=== PATIENT | female | born 1940 | race Caucasian/White ===

== ENCOUNTER 2017-01-01 18:01 | Outpatient (CLI) | payer MEDICARE, OTHER | END 2017-01-01 18:02 | disposition home or self-care (01) | DX: R50.9 Fever, unspecified (principal); R53.83 Other fatigue; R06.89 Other abnormalities of breathing ==

== ENCOUNTER 2017-01-02 15:08 | Inpatient (IN) | payer MEDICARE, OTHER ==
[2017-01-02] MEDS ORDERED: DEXAMETHASONE 10 MG/ML VIAL PO STA (16:00)
[2017-01-02] MEDS ORDERED: ALBUTEROL NEB 2.5 MG/3 ML INH STA ×2 (16:00→18:53)
[2017-01-02] MEDS ORDERED: CHERRY SYRUP 10 ML UDC PO ONE (16:04)
[2017-01-02] MEDS ORDERED: DEXAMETHASONE 10 MG/ML VIAL ONE (16:04)
[2017-01-02] MEDS ORDERED: ALBUTEROL NEB 2.5 MG/3 ML INH ONE ×2 (16:08→19:06)
[2017-01-02] MEDS ORDERED: IOPAMIDOL-300 100 ML VIAL IVP ONE (18:05)
[2017-01-02] MEDS ORDERED: SODIUM CHLORIDE FLUSH 0.9% 10 ML SYRINGE IVP PRN (20:22)
[2017-01-02] MEDS ORDERED: ONDANSETRON 4 MG/2 ML VIAL IVP PRN (20:22)
[2017-01-02] MEDS ORDERED: ACETAMINOPHEN 325 MG TABLET PO PRN (20:22)
[2017-01-02] MEDS ORDERED: IPRATROPIUM/ALBUTEROL 3 ML NEB INH PRN (20:26)
[2017-01-02] MEDS: methylPREDNISolone SUCCINATE 40 MG/ML VIAL IVP SCH (22:39)
[2017-01-02] MEDS: HEPARIN 5,000 UNIT/ML VIAL SUBQ SCH (22:39)
[2017-01-02] MEDS: SODIUM CHLORIDE FLUSH 0.9% 10 ML SYRINGE IVP SCH (22:40)
[2017-01-02] MEDS: cefTRIAXone 1 GM in SODIUM CHLORIDE 0.9% MINIBAG 100 ML IV SCH (22:40)
[2017-01-03] MEDS: BENZOCAINE/MENTHOL LOZENGE MM PRN ×2 (02:52→23:51)
[2017-01-03] MEDS: methylPREDNISolone SUCCINATE 40 MG/ML VIAL IVP SCH ×4 (02:53→20:45)
[2017-01-03] MEDS: SODIUM CHLORIDE FLUSH 0.9% 10 ML SYRINGE IVP SCH ×3 (07:00→20:47)
[2017-01-03] MEDS: cefTRIAXone 1 GM in SODIUM CHLORIDE 0.9% MINIBAG 100 ML IV SCH (08:25)
[2017-01-03] MEDS: HEPARIN 5,000 UNIT/ML VIAL SUBQ SCH ×2 (08:26→20:45)
[2017-01-03] MEDS: POLYETHYLENE GLYCOL 3350 17 GM PACKET PO SCH (08:28)
[2017-01-03] MEDS: AZITHROMYCIN INJ 500 MG in SODIUM CHLORIDE 0.9% 250 ML IV SCH (16:44)
[2017-01-03] MEDS: guaiFENesin/DEXTROMETHORPHAN 10 ML UDC PO PRN (18:48)
[2017-01-04] MEDS: guaiFENesin/DEXTROMETHORPHAN 10 ML UDC PO PRN (00:53)
[2017-01-04] MEDS: SODIUM CHLORIDE FLUSH 0.9% 10 ML SYRINGE IVP SCH (02:42)
[2017-01-04] MEDS: methylPREDNISolone SUCCINATE 40 MG/ML VIAL IVP SCH ×2 (02:42→07:59)
[2017-01-04] MEDS: HEPARIN 5,000 UNIT/ML VIAL SUBQ SCH (07:59)
[2017-01-04] MEDS: POLYETHYLENE GLYCOL 3350 17 GM PACKET PO SCH (07:59)
[2017-01-04] MEDS: cefTRIAXone 1 GM in SODIUM CHLORIDE 0.9% MINIBAG 100 ML IV SCH (07:59)
[2017-01-04] MEDS: AZITHROMYCIN INJ 500 MG in SODIUM CHLORIDE 0.9% 250 ML IV SCH (12:11)
== END 2017-01-04 13:10 | disposition home or self-care (01) | DRG 192 ==
DX: J44.1 Chronic obstructive pulmonary disease with (acute) exacerbation (principal); R06.00 Dyspnea, unspecified; R09.02 Hypoxemia; F17.200 Nicotine dependence, unspecified, uncomplicated; R19.7 Diarrhea, unspecified; F17.210 Nicotine dependence, cigarettes, uncomplicated; D30.02 Benign neoplasm of left kidney; D30.01 Benign neoplasm of right kidney; Z79.52 Long term (current) use of systemic steroids; Z79.82 Long term (current) use of aspirin